=== PATIENT | male | born 1975 ===

== ENCOUNTER → 2021-08-25 | Day surgery (SDC) | payer BC ==
[2021-08-21 16:58] VITALS: BMI 25.7
[~2021-08-25] MED LIST: BUPIVACAINE HCL/PF 0.25% (2.5MG/ML) 10 ML VIAL IJ ONE; BUPIVACAINE HCL/PF 0.25% (2.5MG/ML) 10 ML VIAL ONE; DEXAMETHASONE SOD PHOSPHATE 4 MG/1 ML VIAL ONE; FENTANYL CITRATE/PF 50 MCG/ML VIAL ONE; GLYCOPYRROLATE 0.2 MG/1 ML VIAL ONE; KETOROLAC TROMETHAMINE 30 MG/1 ML VIAL ONE; LACTATED RINGERS SOLUTION 1,000 ML IV SCH; LIDOCAINE HCL/PF 2% SDV 5ML VIAL ONE; MIDAZOLAM HCL 2 MG/2 ML SINGLE DOSE VIAL ONE; NEOSTIGMINE METHYLSULFATE 0.5 MG/ML - 10 ML MDV ONE; ONDANSETRON 4 MG/2 ML VIAL IVPUSH PRN; PROPOFOL 20 ML ONE; ROCURONIUM BROMIDE 50 MG/5 ML SYRINGE ONE; SODIUM CHLORIDE 0.9% P/F 10 ML VIAL IJ ONE; SUCCINYLCHOLINE CHLORIDE 200 MG/10 ML SYRINGE ONE; ceFAZolin SODIUM 1 GM VIAL ONE; oxyCODONE HCL 5 MG TABLET PO PRN
[2021-08-25 13:49] VITALS: BP 109/76
[2021-08-25 14:31] VITALS: PULSE 89; TEMP 98
== END | disposition home or self-care (01) ==
LOC: JASU-SURG 05:10
PROVIDERS: ATTEND Surgery
PROC: 0FT44ZZ Resection of Gallbladder, Percutaneous Endoscopic Approach (ICD-10-PCS; principal; 2021-08-25 08:00)
DX: K81.1 Chronic cholecystitis (principal)
CPT/HCPCS: 88304-TC; 94760